=== PATIENT | female | born 1940 | race Caucasian/White ===

== ENCOUNTER → 2016-09-09 | Outpatient (CLI) | payer OTHER ==
[~2016-09-09] MED LIST: SIMV-13 PO
[2016-09-09 09:22] LABS: Basophils # (auto) 0 uL; Basophils % (auto) 0.6 % (0.0-2.0); Eosinophils # (auto) 0.1 uL; Eosinophils % (auto) 1.1 % (0.0-7.0); Hematocrit 42.6 % (36.0-46.0); Hemoglobin 13.9 g/dL (12.2-16.2); Lymphocytes # (auto) 1.2 uL; Lymphocytes % (auto) 22.9 % (10.0-50.0); Mean Corpuscular Hemoglobin 28.9 pg (28.0-32.0); Mean Corpuscular Hgb Conc. 32.5 g/dL (32.0-36.0); Mean Corpuscular Volume 88.7 fL (80.0-100.0); Monocytes # (auto) 0.4 uL; Monocytes % (auto) 7.3 % (0.0-12.0); Neutrophils # (auto) 3.6 uL; Neutrophils % (auto) 68.1 % (37.0-80.0); Platelet Count (auto) 218 10^3/uL (140-450); Red Cell Distribution Width 14.8 % (11.6-16.0); White Blood Cell 5.2 10^3/uL (4.4-10.8)
[2016-09-09 09:32] LABS: Urine Bilirubin Negative (Negative); Urine Blood TRACE /uL (Negative); Urine Color Yellow (Yellow); Urine Glucose Normal (Normal); Urine Ketone Negative (Negative); Urine RBC 1 /hpf (0 - 4); Urine Squamous Epithelial Cell FEW /hpf (<5); Urine Urobilinogen Normal (Negative)
[2016-09-09 09:34] LABS: Urine Nitrite POSITIVE (Negative)
[2016-09-09 10:17] LABS: Potassium 4.3 mmol/L (3.5-5.1)
[2016-09-09 10:24] LABS: Albumin 3.5 g/dL (3.4-5.0); BUN/Creatinine Ratio 26.7; Calcium 8.2 mg/dL (8.5-10.1)
[2016-09-09 10:26] LABS: Bilirubin, Total 0.7 mg/dL (0.2-1.0)
== END | disposition home or self-care (01) ==
LOC: LAB 07:52
PROVIDERS: ATTEND Family Medicine
DX: Z00.00 Encounter for general adult medical examination without abnormal findings (principal); E78.4 Other hyperlipidemia
CPT/HCPCS: 36415; 80053; 80061; 81001; 82306; 82607; 83036; 84443; 85025

== ENCOUNTER → 2017-05-18 | Outpatient (CLI) | payer OTHER ==
[2017-05-18 10:26] LABS: Urine Bacteria NONE SEEN /hpf (None Seen); Urine Blood Negative /uL (Negative); Urine Specific Gravity 1.005 (1.001-1.035); Urine WBC <1 /hpf (0 - 5)
== END | disposition home or self-care (01) ==
LOC: LAB 09:23
PROVIDERS: ATTEND Family Medicine
DX: E55.9 Vitamin D deficiency, unspecified (principal)
CPT/HCPCS: 81001; 82306; 82607

== ENCOUNTER → 2018-06-18 | Outpatient (CLI) | payer OTHER ==
[2018-06-18 08:18] LABS: Basophils # (auto) 0 uL; Basophils % (auto) 0.7 % (0.0-2.0); Eosinophils # (auto) 0.1 uL; Eosinophils % (auto) 1.4 % (0.0-7.0); Hematocrit 45.6 % (36.0-46.0); Hemoglobin 14.8 g/dL (12.2-16.2); Lymphocytes # (auto) 1.3 uL; Lymphocytes % (auto) 21.4 % (10.0-50.0); Mean Corpuscular Hemoglobin 29.7 pg (28.0-32.0); Mean Corpuscular Hgb Conc. 32.5 g/dL (32.0-36.0); Mean Corpuscular Volume 91.3 fL (80.0-100.0); Monocytes # (auto) 0.4 uL; Monocytes % (auto) 6.8 % (0.0-12.0); Neutrophils # (auto) 4.1 uL; Neutrophils % (auto) 69.7 % (37.0-80.0); Platelet Count (auto) 213 10^3/uL (140-450); Red Blood Cells 4.99 10^6/uL (4.0-5.20); Red Cell Distribution Width 14.2 % (11.8-14.3); White Blood Cell 5.9 10^3/uL (4.4-10.8)
[2018-06-18 08:33] LABS: Urine Bacteria FEW /hpf (None Seen); Urine Blood Negative /uL (Negative); Urine Specific Gravity 1.013 (1.001-1.035); Urine WBC 3 /hpf (0 - 5)
[2018-06-18 08:52] LABS: Potassium 3.7 mmol/L (3.5-5.1)
[2018-06-18 09:00] LABS: Albumin 3.6 g/dL (3.4-5.0); BUN/Creatinine Ratio 21.4; Bilirubin, Total 0.8 mg/dL (0.2-1.0); Calcium 8.8 mg/dL (8.5-10.1); Total Protein 7.3 g/dL (6.4-8.2)
== END | disposition home or self-care (01) ==
LOC: LAB 07:19
PROVIDERS: ATTEND Family Medicine
DX: Z00.01 Encounter for general adult medical examination with abnormal findings (principal); E55.9 Vitamin D deficiency, unspecified; E78.2 Mixed hyperlipidemia
CPT/HCPCS: 36415; 80053; 80061; 81001; 82306; 82607; 84443; 85025

== ENCOUNTER → 2019-08-23 | Outpatient (CLI) | payer OTHER ==
[2019-08-23 08:47] LABS: Urine WBC None Seen /hpf (0 - 5)
[2019-08-23 09:07] LABS: Urine Bacteria FEW /hpf (None Seen); Urine Blood Negative /uL (Negative); Urine Mucus FEW (None Seen); Urine Specific Gravity 1.012 (1.001-1.035)
[2019-08-23 09:11] LABS: Basophils # (auto) 0 uL; Basophils % (auto) 0.9 % (0.0-2.0); Eosinophils # (auto) 0.1 uL; Eosinophils % (auto) 1.1 % (0.0-7.0); Hemoglobin 14.4 g/dL (12.2-16.2); Lymphocytes # (auto) 1.3 uL; Lymphocytes % (auto) 24.7 % (10.0-50.0); Mean Corpuscular Hgb Conc. 33.4 g/dL (32.0-36.0); Mean Corpuscular Volume 89.8 fL (80.0-100.0); Monocytes # (auto) 0.4 uL; Monocytes % (auto) 7.7 % (0.0-12.0); Neutrophils # (auto) 3.5 uL; Neutrophils % (auto) 65.6 % (37.0-80.0); Nucleated Red Blood Cells % 0.1 %; Platelet Count (auto) 175 10^3/uL (140-450); Red Blood Cells 4.79 10^6/uL (4.0-5.20); Red Cell Distribution Width 15.3 % (11.8-14.3); White Blood Cell 5.4 10^3/uL (4.4-10.8)
[2019-08-23 09:29] LABS: Albumin 3.6 g/dL (3.4-5.0); Calcium 8.7 mg/dL (8.5-10.1); Potassium 3.9 mmol/L (3.5-5.1)
[2019-08-23 09:33] LABS: BUN/Creatinine Ratio 20.4; Bilirubin, Total 0.7 mg/dL (0.2-1.0); Total Protein 7.3 g/dL (6.4-8.2)
== END | disposition home or self-care (01) ==
LOC: LAB 08:20
PROVIDERS: ATTEND Family Medicine
DX: E78.2 Mixed hyperlipidemia (principal); K21.0 Gastro-esophageal reflux disease with esophagitis; E55.9 Vitamin D deficiency, unspecified; R63.4 Abnormal weight loss; R47.02 Dysphasia
CPT/HCPCS: 36415; 80053; 80061; 81001; 82306; 84443; 85025

== ENCOUNTER → 2019-09-27 | Day surgery (SDC) | payer OTHER ==
[2019-09-26 09:39] LABS: Basophils # (auto) 0 10 ^3/uL (0-0.2); Basophils % (auto) 0.9 % (0.0-2.0); Eosinophils # (auto) 0 10 ^3/uL (0-0.8); Eosinophils % (auto) 0.6 % (0.0-7.0); Hematocrit 42.2 % (36.0-46.0); Hemoglobin 14.4 g/dL (12.2-16.2); Lymphocytes # (auto) 1.2 10 ^3/uL (0.4-5.4); Lymphocytes % (auto) 22.2 % (10.0-50.0); Mean Corpuscular Hemoglobin 30.5 pg (28.0-32.0); Mean Corpuscular Hgb Conc. 34.1 g/dL (32.0-36.0); Mean Corpuscular Volume 89.5 fL (80.0-100.0); Monocytes # (auto) 0.5 10 ^3/uL (0-1.3); Monocytes % (auto) 8.4 % (0.0-12.0); Neutrophils # (auto) 3.6 10 ^3/uL (1.6-8.6); Neutrophils % (auto) 67.9 % (37.0-80.0); Nucleated Red Blood Cells % 0.1 %; Platelet Count (auto) 178 10^3/uL (140-450); Red Blood Cells 4.71 10^6/uL (4.0-5.20); White Blood Cell 5.4 10^3/uL (4.4-10.8)
[2019-09-26 10:03] LABS: INR 0.98 (0.9-1.15); Partial Thromboplastin Time 24.5 sec (23.64-32.05)
[~2019-09-27] VITALS: Ht 162.6 cm; Wt 71.2 kg
[~2019-09-27] MED LIST changes: +FLUMAZENIL 0.1 MG/ML INJ 10ML MDV IV ONE; +LIDOCAINE VISCOUS 2% 15ML UD ONE; +MIDAZOLAM HCL 5 MG/ML-1ML VIAL ONE; +NALOXONE HCL 0.4 MG/ML VIAL ONE; +OMEP20TA PO; +SODIUM CHLORIDE LOCK 10 ML ONE; +diphenhdrAMINE HCL 50 MG/1 ML VL ONE
[2019-09-27] MEDS: fentaNYL CITRATE 100 MCG/2 ML VL ONE ×2 (10:07→10:12)
[2019-09-27 10:53] VITALS: BP 141/67
== END | disposition home or self-care (01) ==
LOC: GI 08:17
PROVIDERS: ATTEND Internal Medicine Gastroenterology
DX: K29.50 Unspecified chronic gastritis without bleeding (principal); K21.0 Gastro-esophageal reflux disease with esophagitis; K44.9 Diaphragmatic hernia without obstruction or gangrene; E78.5 Hyperlipidemia, unspecified; E66.9 Obesity, unspecified; E55.9 Vitamin D deficiency, unspecified; Z98.890 Other specified postprocedural states; Z68.26 Body mass index [BMI] 26.0-26.9, adult; Z79.899 Other long term (current) drug therapy
CPT/HCPCS: 36415; 43239; 43450; 85025; 85610; 85730; 88305; 88342; J1200; J2250; J3010; J7030

== ENCOUNTER → 2020-08-18 | Outpatient (CLI) | payer OTHER ==
[~2020-08-18] MED LIST changes: -FLUMAZENIL 0.1 MG/ML INJ 10ML MDV IV ONE; -LIDOCAINE VISCOUS 2% 15ML UD ONE; -MIDAZOLAM HCL 5 MG/ML-1ML VIAL ONE; -NALOXONE HCL 0.4 MG/ML VIAL ONE; -SODIUM CHLORIDE LOCK 10 ML ONE; -diphenhdrAMINE HCL 50 MG/1 ML VL ONE
[2020-08-18 08:16] LABS: Basophils # (auto) 0 10 ^3/uL (0-0.2); Basophils % (auto) 0.8 % (0.0-2.0); Eosinophils # (auto) 0 10 ^3/uL (0-0.8); Eosinophils % (auto) 0.8 % (0.0-7.0); Hematocrit 42.3 % (36.0-46.0); Hemoglobin 14.3 g/dL (12.2-16.2); Lymphocytes # (auto) 1.2 10 ^3/uL (0.4-5.4); Lymphocytes % (auto) 23.1 % (10.0-50.0); Mean Corpuscular Hemoglobin 31.2 pg (28.0-32.0); Mean Corpuscular Hgb Conc. 33.8 g/dL (32.0-36.0); Mean Corpuscular Volume 92.4 fL (80.0-100.0); Monocytes # (auto) 0.4 10 ^3/uL (0-1.3); Monocytes % (auto) 7.1 % (0.0-12.0); Neutrophils # (auto) 3.5 10 ^3/uL (1.6-8.6); Neutrophils % (auto) 68.2 % (37.0-80.0); Platelet Count (auto) 167 10^3/uL (140-450); Red Blood Cells 4.58 10^6/uL (4.0-5.20); Red Cell Distribution Width 14.4 % (11.8-14.3); White Blood Cell 5.1 10^3/uL (4.4-10.8)
[2020-08-18 08:43] LABS: Urine Bacteria FEW /hpf (None Seen); Urine Blood 1+ /uL (Negative); Urine Mucus FEW (None Seen); Urine Specific Gravity 1.017 (1.001-1.035); Urine WBC 4 /hpf (0 - 5)
[2020-08-18 08:44] LABS: Albumin 3.6 g/dL (3.4-5.0); Calcium 8.4 mg/dL (8.5-10.1); Potassium 3.9 mmol/L (3.5-5.1)
[2020-08-18 08:48] LABS: BUN/Creatinine Ratio 21.1; Bilirubin, Total 0.8 mg/dL (0.2-1.0); Total Protein 7.2 g/dL (6.4-8.2)
== END | disposition home or self-care (01) ==
LOC: LAB 07:39
PROVIDERS: ATTEND Family Medicine
DX: S22.080A Wedge compression fracture of T11-T12 vertebra, initial encounter for closed fracture (principal); E78.2 Mixed hyperlipidemia; K21.9 Gastro-esophageal reflux disease without esophagitis; E55.9 Vitamin D deficiency, unspecified; X58.XXXA Exposure to other specified factors, initial encounter; Y93.89 Activity, other specified; Y92.89 Other specified places as the place of occurrence of the external cause; Y99.8 Other external cause status
CPT/HCPCS: 36415; 80053; 80061; 81001; 82306; 82607; 84443; 85025

== ENCOUNTER → 2021-08-02 | Outpatient (CLI) | payer OTHER ==
[2021-08-02 07:53] LABS: Basophils # (auto) 0 10 ^3/uL (0-0.2); Basophils % (auto) 0.8 % (0.0-2.0); Eosinophils # (auto) 0.1 10 ^3/uL (0-0.8); Eosinophils % (auto) 1.3 % (0.0-7.0); Hematocrit 41.8 % (36.0-46.0); Hemoglobin 13.9 g/dL (12.2-16.2); Lymphocytes # (auto) 1.4 10 ^3/uL (0.4-5.4); Lymphocytes % (auto) 24.6 % (10.0-50.0); Mean Corpuscular Hemoglobin 30.4 pg (28.0-32.0); Mean Corpuscular Hgb Conc. 33.2 g/dL (32.0-36.0); Mean Corpuscular Volume 91.4 fL (80.0-100.0); Monocytes # (auto) 0.5 10 ^3/uL (0-1.3); Monocytes % (auto) 8.3 % (0.0-12.0); Neutrophils # (auto) 3.6 10 ^3/uL (1.6-8.6); Nucleated Red Blood Cells % 0.2 %; Red Blood Cells 4.57 10^6/uL (4.0-5.20); Red Cell Distribution Width 14.3 % (11.8-14.3); White Blood Cell 5.6 10^3/uL (4.4-10.8)
[2021-08-02 08:07] LABS: Albumin 3.5 g/dL (3.4-5.0); Calcium 8.4 mg/dL (8.5-10.1); Potassium 3.7 mmol/L (3.5-5.1)
[2021-08-02 08:13] LABS: Bilirubin, Total 0.7 mg/dL (0.2-1.0); Total Protein 6.8 g/dL (6.4-8.2)
== END | disposition home or self-care (01) ==
LOC: LAB 07:05
PROVIDERS: ATTEND Student in an Organized Health Care Education/Training Program
DX: K21.9 Gastro-esophageal reflux disease without esophagitis (principal); R03.0 Elevated blood-pressure reading, without diagnosis of hypertension; E78.2 Mixed hyperlipidemia
CPT/HCPCS: 36415; 80053; 80061; 83036; 85025

== ENCOUNTER → 2022-08-10 | Outpatient (CLI) | payer OTHER ==
[2022-08-10 08:43] LABS: Basophils # (auto) 0 10 ^3/uL (0-0.2); Basophils % (auto) 0.8 % (0.0-2.0); Eosinophils # (auto) 0.1 10 ^3/uL (0-0.8); Eosinophils % (auto) 0.9 % (0.0-7.0); Hematocrit 43.4 % (36.0-46.0); Hemoglobin 14.5 g/dL (12.2-16.2); Lymphocytes # (auto) 1.7 10 ^3/uL (0.4-5.4); Lymphocytes % (auto) 28.1 % (10.0-50.0); Mean Corpuscular Hemoglobin 31.1 pg (28.0-32.0); Mean Corpuscular Hgb Conc. 33.5 g/dL (32.0-36.0); Mean Corpuscular Volume 92.8 fL (80.0-100.0); Monocytes # (auto) 0.5 10 ^3/uL (0-1.3); Monocytes % (auto) 7.9 % (0.0-12.0); Neutrophils # (auto) 3.7 10 ^3/uL (1.6-8.6); Neutrophils % (auto) 62.3 % (37.0-80.0); Nucleated Red Blood Cells % 0.2 %; Red Blood Cells 4.67 10^6/uL (4.0-5.20); Red Cell Distribution Width 13.8 % (11.8-14.3); White Blood Cell 5.9 10^3/uL (4.4-10.8)
[2022-08-10 09:02] LABS: Albumin 3.8 g/dL (3.4-5.0); Calcium 8.6 mg/dL (8.5-10.1); Potassium 4.1 mmol/L (3.5-5.1)
[2022-08-10 09:08] LABS: BUN/Creatinine Ratio 25.8; Bilirubin, Total 0.9 mg/dL (0.2-1.0); Total Protein 7.1 g/dL (6.4-8.2)
== END | disposition home or self-care (01) ==
LOC: LAB 08:28
PROVIDERS: ATTEND Student in an Organized Health Care Education/Training Program
DX: I10 Essential (primary) hypertension (principal); E78.2 Mixed hyperlipidemia
CPT/HCPCS: 36415; 80053; 85025

== ENCOUNTER 2023-05-09 12:16 | Inpatient (IN) | payer OTHER ==
[~2023-05-09] VITALS: Ht 162.6 cm; Wt 67.3 kg
[~2023-05-09 12:16] MED LIST changes: -SIMV-13 PO; +SIMV40TA18 PO
[2023-05-09] MEDS ORDERED: ASPirin 81 mg TAB PO ONE (12:30)
[2023-05-09] MEDS ORDERED: dilTIAZem 25 MG/5 ML VIAL IV ONE (12:30)
[2023-05-09] MEDS ORDERED: dilTIAZem 125mg/125ml BAG KIT 125 ML IV ONE (12:30)
[2023-05-09 12:36] LABS: Basophils # (auto) 0 10 ^3/uL (0-0.2); Basophils % (auto) 0.3 % (0.0-2.0); Eosinophils # (auto) 0 10 ^3/uL (0-0.8); Eosinophils % (auto) 0.2 % (0.0-7.0); Hematocrit 43.1 % (36.0-46.0); Hemoglobin 14.4 g/dL (12.2-16.2); Lymphocytes # (auto) 1.6 10 ^3/uL (0.4-5.4); Lymphocytes % (auto) 15.4 % (10.0-50.0); Mean Corpuscular Hemoglobin 31.1 pg (28.0-32.0); Mean Corpuscular Hgb Conc. 33.4 g/dL (32.0-36.0); Mean Corpuscular Volume 93.1 fL (80.0-100.0); Monocytes # (auto) 0.8 10 ^3/uL (0-1.3); Monocytes % (auto) 7.6 % (0.0-12.0); Neutrophils # (auto) 7.9 10 ^3/uL (1.6-8.6); Neutrophils % (auto) 76.5 % (37.0-80.0); Nucleated Red Blood Cells % 0.1 %; Red Blood Cells 4.63 10^6/uL (4.0-5.20); Red Cell Distribution Width 14.6 % (11.8-14.3); White Blood Cell 10.4 10^3/uL (4.4-10.8)
[2023-05-09 12:51] LABS: INR 1.09 (0.9-1.15); Partial Thromboplastin Time 24.5 SEC (24.5-34.5); Prothrombin Time 11.4 sec (9.3-11.8)
[2023-05-09 12:53] LABS: Alanine Aminotransferase 43 U/L (7-40); Albumin 4.2 g/dL (3.2-4.8); Alkaline Phosphatase 80 U/L (46-116); Anion Gap 6 (5-15); Aspartate Aminotransferase 39 U/L (13-40); BUN/Creatinine Ratio 23.5 (10.0-20.0); Blood Urea Nitrogen 20 mg/dL (9-23); Carbon Dioxide 30 mmol/L (20-30); Chloride 101 mmol/L (98-107); Glucose 123 mg/dL (74-106); Magnesium 2.2 mg/dL (1.6-2.6); Potassium 4.2 mmol/L (3.5-5.1); Sodium 137 mmol/L (136-145)
[2023-05-09 12:54] LABS: Bilirubin, Total 1.1 mg/dL (0.2-1.0); Total Protein 6.2 g/dL (5.7-8.2)
[2023-05-09] MEDS ORDERED: FUROSEMIDE 40 MG/4 ML VIAL IV ONE (15:15)
[2023-05-09] MEDS ORDERED: METOPROLOL TARTRATE 1MG/1ML-5ML VIAL IV ONE (15:30)
[2023-05-09] MEDS ORDERED: dilTIAZem 125mg/125ml BAG KIT 125 ML IV SCH (15:30)
[2023-05-09] MEDS ORDERED: NITROGLYCERIN 0.4 MG SL TAB SL PRN (15:30)
[2023-05-09] MEDS ORDERED: MORPHINE SULFATE INJ 2 MG/ml SYRG IV PRN (15:30)
[2023-05-09 16:19] VITALS: RESP 17; O2SAT 90
[2023-05-09 19:45] VITALS: PULSE 134; RESP 25; O2SAT 94
[2023-05-09] MEDS ORDERED: AMIODARONE 450mg/250ml AE 250 ML IV SCH (20:00)
[2023-05-09] MEDS ORDERED: ENOXAPARIN SOD 100 MG/1 ML SYRINGE SC SCH (22:00)
[2023-05-09] MEDS: APIXABAN 2.5 MG TAB PO SCH (22:25)
[2023-05-09] MEDS: ATORVASTATIN 20 MG TAB PO SCH (22:25)
[2023-05-09] MEDS: METOPROLOL TARTRATE 25 MG TAB PO SCH (22:25)
[2023-05-10] VITALS (8 sets, daily range): BP systolic 107–120; BP diastolic 61–77; PULSE 110–127; RESP 16–22; TEMP 97.6–98.7; O2SAT 95–97
[2023-05-10] MEDS: AMIODARONE 450mg/250ml AE 250 ML IV SCH ×2 (04:34→18:00)
[2023-05-10 05:21] LABS: Urine Bacteria FEW /hpf (None Seen); Urine Blood Negative /uL (Negative); Urine Clarity HAZY (Clear); Urine Color Yellow (Yellow); Urine Mucus FEW (None Seen); Urine Protein, UAD TRACE (Negative); Urine Specific Gravity 1.014 (1.001-1.035); Urine WBC 11 /hpf (0 - 5); Urine pH 5.5 (5.0-8.0)
[2023-05-10] MEDS: PANTOPRAZOLE 40 MG TAB PO SCH (09:29)
[2023-05-10] MEDS: APIXABAN 2.5 MG TAB PO SCH (09:29)
[2023-05-10] MEDS: METOPROLOL TARTRATE 25 MG TAB PO SCH ×2 (09:29→21:17)
[2023-05-10] MEDS: FUROSEMIDE 20 MG TAB PO SCH (09:31)
[2023-05-10] MEDS: cefTRIAXone 1GM/50ML D5W 50 ML IV SCH (09:57)
[2023-05-10] MEDS ORDERED: FUROSEMIDE 20 MG/2 ML VIAL IV SCH (10:00)
[2023-05-10] MEDS: ATORVASTATIN 20 MG TAB PO SCH (21:18)
[2023-05-10] MEDS: APIXABAN 5 MG TAB PO SCH (21:18)
[2023-05-11] VITALS (7 sets, daily range): BP systolic 109–128; BP diastolic 69–76; PULSE 102–132; RESP 17–20; TEMP 97–97.7; O2SAT 94–98
[2023-05-11 05:31] LABS: Basophils # (auto) 0.1 10 ^3/uL (0-0.2); Basophils % (auto) 0.8 % (0.0-2.0); Eosinophils # (auto) 0 10 ^3/uL (0-0.8); Eosinophils % (auto) 0.1 % (0.0-7.0); Hematocrit 39.6 % (36.0-46.0); Lymphocytes # (auto) 1.4 10 ^3/uL (0.4-5.4); Mean Corpuscular Hemoglobin 30.3 pg (28.0-32.0); Mean Corpuscular Hgb Conc. 32.8 g/dL (32.0-36.0); Mean Corpuscular Volume 92.3 fL (80.0-100.0); Monocytes # (auto) 0.7 10 ^3/uL (0-1.3); Monocytes % (auto) 8.6 % (0.0-12.0); Neutrophils # (auto) 6.1 10 ^3/uL (1.6-8.6); Neutrophils % (auto) 73.5 % (37.0-80.0); Nucleated Red Blood Cells % 0.1 %; Red Blood Cells 4.29 10^6/uL (4.0-5.20); Red Cell Distribution Width 14.3 % (11.8-14.3); White Blood Cell 8.3 10^3/uL (4.4-10.8)
[2023-05-11 05:48] LABS: Chloride 98 mmol/L (98-107); Sodium 135 mmol/L (136-145)
[2023-05-11 05:49] LABS: Anion Gap 6 (5-15); Carbon Dioxide 31 mmol/L (20-30)
[2023-05-11 05:50] LABS: Calcium 8.8 mg/dL (8.7-10.4)
[2023-05-11 05:54] LABS: Glucose 127 mg/dL (74-106)
[2023-05-11 05:55] LABS: Blood Urea Nitrogen 12 mg/dL (9-23)
[2023-05-11] MEDS: PANTOPRAZOLE 40 MG TAB PO SCH (09:00)
[2023-05-11] MEDS: cefTRIAXone 1GM/50ML D5W 50 ML IV SCH (09:00)
[2023-05-11] MEDS: APIXABAN 5 MG TAB PO SCH (09:00)
[2023-05-11] MEDS: METOPROLOL TARTRATE 25 MG TAB PO SCH ×2 (09:01→23:01)
[2023-05-11] MEDS: FUROSEMIDE 20 MG TAB PO SCH (09:02)
[2023-05-11] MEDS: AMIODARONE 450mg/250ml AE 250 ML IV SCH (09:24)
[2023-05-11] MEDS ORDERED: DIGOXIN (250MCG/ML) 2 ML AMPULE IV ONE (11:30)
[2023-05-11] MEDS ORDERED: FUROSEMIDE INJECTION 100 MG in D5W 5% 100 ML IV SCH (11:30)
[2023-05-11] MEDS: SPIRONOLACTONE 25 MG TAB PO SCH (13:40)
[2023-05-11] MEDS ORDERED: ENOXAPARIN SOD 100 MG/1 ML SYRINGE SC SCH (22:00)
[2023-05-11] MEDS: ATORVASTATIN 20 MG TAB PO SCH (23:01)
[2023-05-12] VITALS (13 sets, daily range): BP systolic 105–122; BP diastolic 52–82; PULSE 110–136; RESP 15–20; TEMP 97.3–97.8; O2SAT 91–99
[2023-05-12] MEDS: AMIODARONE 450mg/250ml AE 250 ML IV SCH ×2 (02:36→14:06)
[2023-05-12 06:10] LABS: Basophils # (auto) 0 10 ^3/uL (0-0.2); Basophils % (auto) 0.3 % (0.0-2.0); Chloride 95 mmol/L (98-107); Eosinophils # (auto) 0 10 ^3/uL (0-0.8); Eosinophils % (auto) 0.1 % (0.0-7.0); Hematocrit 41.3 % (36.0-46.0); Hemoglobin 13.7 g/dL (12.2-16.2); Lymphocytes # (auto) 1.3 10 ^3/uL (0.4-5.4); Mean Corpuscular Hemoglobin 30.4 pg (28.0-32.0); Mean Corpuscular Hgb Conc. 33.2 g/dL (32.0-36.0); Mean Corpuscular Volume 91.4 fL (80.0-100.0); Monocytes # (auto) 1.1 10 ^3/uL (0-1.3); Neutrophils # (auto) 11.7 10 ^3/uL (1.6-8.6); Neutrophils % (auto) 82.6 % (37.0-80.0); Red Blood Cells 4.52 10^6/uL (4.0-5.20); Red Cell Distribution Width 14.1 % (11.8-14.3); Sodium 136 mmol/L (136-145); White Blood Cell 14.2 10^3/uL (4.4-10.8)
[2023-05-12 06:11] LABS: Anion Gap 7 (5-15); Calcium 8.4 mg/dL (8.7-10.4); Carbon Dioxide 34 mmol/L (20-30)
[2023-05-12] MEDS: EMPAGLIFLOZIN 10 MG TAB PO SCH (06:13)
[2023-05-12 06:16] LABS: BUN/Creatinine Ratio 10.6 (10.0-20.0); Blood Urea Nitrogen 7 mg/dL (9-23); Glucose 121 mg/dL (74-106); Potassium 2.8 mmol/L (3.5-5.1)
[2023-05-12] MEDS ORDERED: POTASSIUM EFFERVESENT TAB 25 MEQ PO ONE ×2 (07:15→08:45)
[2023-05-12] MEDS ORDERED: LIDOCAINE 2%HCL (LOCAL ANESTH.) INJ 20ML MDV ONE (07:46)
[2023-05-12] MEDS ORDERED: IODIXANOL 320MG/ML 100ML BTL IV ONE (07:46)
[2023-05-12] MEDS ORDERED: HEPARIN SODIUM (PORCINE) 5000 UNITS/ML 1ML VIAL ONE (08:03)
[2023-05-12] MEDS ORDERED: ANGIOMAX 250 MG VIAL IV ONE (08:03)
[2023-05-12] MEDS ORDERED: SODIUM CHL 0.9% 0 ML ONE (08:04)
[2023-05-12] MEDS ORDERED: MIDAZOLAM HCL 2MG/2ML 2ml VIAL (1mg/ml) ONE (08:04)
[2023-05-12] MEDS ORDERED: fentaNYL CITRATE 100 MCG/2 ML VL ONE (08:04)
[2023-05-12] MEDS ORDERED: VERAPAMIL 2.5MG/ML INJ 2ML VIAL IV ONE (08:04)
[2023-05-12] MEDS ORDERED: POTASSIUM CHLORIDE 40 MEQ, LIDOCAINE 1% (LOCAL ANESTH.) 4 ML in SODIUM CHL 0.9% 250 ML IV ONE (08:45)
[2023-05-12] MEDS: cefTRIAXone 1GM/50ML D5W 50 ML IV SCH (09:00)
[2023-05-12 09:23] LABS: Triglycerides 77 mg/dL (< 150)
[2023-05-12 09:24] LABS: LDL Cholesterol 58 mg/dL (< 100)
[2023-05-12 09:25] LABS: Cholesterol 131 mg/dL (< 200)
[2023-05-12] MEDS ORDERED: SPIRONOLACTONE 25 MG TAB PO SCH (10:00)
[2023-05-12] MEDS ORDERED: dilTIAZem 120MG ER CAP PO SCH (10:00)
[2023-05-12] MEDS ORDERED: FUROSEMIDE 40 MG/4 ML VIAL IV ONE (11:15)
[2023-05-12] MEDS: LISINOPRIL 10 MG TAB PO SCH (11:38)
[2023-05-12] MEDS: PANTOPRAZOLE 40 MG TAB PO SCH (11:40)
[2023-05-12] MEDS: SPIRONOLACTONE 25 MG TAB PO SCH (11:41)
[2023-05-12] MEDS: METOPROLOL TARTRATE 25 MG TAB PO SCH ×2 (11:42→21:47)
[2023-05-12] MEDS: DIGOXIN 0.125 MG TAB PO SCH (11:43)
[2023-05-12 15:54] LABS: HDL Cholesterol 51 mg/dL (40-59)
[2023-05-12] MEDS: FUROSEMIDE 40 MG/4 ML VIAL IV SCH (18:00)
[2023-05-12] MEDS: ATORVASTATIN 20 MG TAB PO SCH (21:47)
[2023-05-12] MEDS: APIXABAN 5 MG TAB PO SCH (21:47)
[2023-05-13] VITALS (9 sets, daily range): BP systolic 106–116; BP diastolic 60–80; PULSE 98–131; RESP 14–18; TEMP 97.7–98.5; O2SAT 95–98
[2023-05-13] MEDS: AMIODARONE 450mg/250ml AE 250 ML IV SCH ×2 (04:26→20:21)
[2023-05-13 05:47] LABS: Anion Gap 4 (5-15); Calcium 8.3 mg/dL (8.7-10.4); Carbon Dioxide 36 mmol/L (20-30); Chloride 93 mmol/L (98-107); Sodium 133 mmol/L (136-145)
[2023-05-13 05:51] LABS: Basophils # (auto) 0 10 ^3/uL (0-0.2); Basophils % (auto) 0.5 % (0.0-2.0); Eosinophils # (auto) 0 10 ^3/uL (0-0.8); Eosinophils % (auto) 0.4 % (0.0-7.0); Hematocrit 40.8 % (36.0-46.0); Hemoglobin 13.4 g/dL (12.2-16.2); Lymphocytes # (auto) 1.2 10 ^3/uL (0.4-5.4); Lymphocytes % (auto) 13.6 % (10.0-50.0); Mean Corpuscular Hemoglobin 30.4 pg (28.0-32.0); Mean Corpuscular Volume 92.2 fL (80.0-100.0); Monocytes # (auto) 0.8 10 ^3/uL (0-1.3); Monocytes % (auto) 9.3 % (0.0-12.0); Neutrophils # (auto) 6.8 10 ^3/uL (1.6-8.6); Neutrophils % (auto) 76.2 % (37.0-80.0); Red Blood Cells 4.42 10^6/uL (4.0-5.20); Red Cell Distribution Width 14.1 % (11.8-14.3); White Blood Cell 8.9 10^3/uL (4.4-10.8)
[2023-05-13 05:52] LABS: Glucose 108 mg/dL (74-106)
[2023-05-13 05:53] LABS: BUN/Creatinine Ratio 13.6 (10.0-20.0); Blood Urea Nitrogen 9 mg/dL (9-23)
[2023-05-13 05:54] LABS: Magnesium 1.9 mg/dL (1.6-2.6)
[2023-05-13] MEDS: FUROSEMIDE 40 MG/4 ML VIAL IV SCH ×2 (06:47→17:12)
[2023-05-13] MEDS: EMPAGLIFLOZIN 10 MG TAB PO SCH (06:48)
[2023-05-13 06:54] LABS: Potassium 2.9 mmol/L (3.5-5.1)
[2023-05-13] MEDS ORDERED: POTASSIUM CHL 20 Meq TABLET PO ONE ×2 (07:15→15:45)
[2023-05-13] MEDS: cefTRIAXone 1GM/50ML D5W 50 ML IV SCH (08:57)
[2023-05-13] MEDS: LISINOPRIL 10 MG TAB PO SCH (09:00)
[2023-05-13] MEDS: PANTOPRAZOLE 40 MG TAB PO SCH (09:01)
[2023-05-13] MEDS: DIGOXIN 0.125 MG TAB PO SCH (09:02)
[2023-05-13] MEDS: SPIRONOLACTONE 25 MG TAB PO SCH ×2 (09:03→17:11)
[2023-05-13] MEDS: METOPROLOL TARTRATE 25 MG TAB PO SCH ×2 (09:03→21:48)
[2023-05-13] MEDS: APIXABAN 5 MG TAB PO SCH ×2 (10:14→21:47)
[2023-05-13] MEDS: ATORVASTATIN 20 MG TAB PO SCH (21:46)
[2023-05-14] VITALS (8 sets, daily range): BP systolic 103–119; BP diastolic 54–71; PULSE 87–133; RESP 16–20; TEMP 97.7–98.7; O2SAT 95–99
[2023-05-14] MEDS: SPIRONOLACTONE 25 MG TAB PO SCH ×2 (05:52→18:01)
[2023-05-14] MEDS: FUROSEMIDE 40 MG/4 ML VIAL IV SCH ×2 (05:52→18:01)
[2023-05-14 06:23] LABS: Alanine Aminotransferase 28 U/L (7-40); Albumin 3.6 g/dL (3.2-4.8); Alkaline Phosphatase 58 U/L (46-116); Aspartate Aminotransferase 37 U/L (13-40); Calcium 8.6 mg/dL (8.7-10.4); Carbon Dioxide 35 mmol/L (20-30); Chloride 92 mmol/L (98-107)
[2023-05-14 06:24] LABS: Anion Gap 6 (5-15); BUN/Creatinine Ratio 15.6 (10.0-20.0); Bilirubin, Total 1.5 mg/dL (0.2-1.0); Blood Urea Nitrogen 10 mg/dL (9-23); Glucose 106 mg/dL (74-106); Potassium 3.5 mmol/L (3.5-5.1); Sodium 133 mmol/L (136-145); Total Protein 5.6 g/dL (5.7-8.2)
[2023-05-14] MEDS: EMPAGLIFLOZIN 10 MG TAB PO SCH (06:33)
[2023-05-14] MEDS: POTASSIUM CHL 20 Meq TABLET PO SCH (08:55)
[2023-05-14] MEDS: PANTOPRAZOLE 40 MG TAB PO SCH (08:56)
[2023-05-14] MEDS: DIGOXIN 0.125 MG TAB PO SCH (08:56)
[2023-05-14] MEDS: LISINOPRIL 10 MG TAB PO SCH (08:56)
[2023-05-14] MEDS: METOPROLOL TARTRATE 25 MG TAB PO SCH ×2 (08:56→21:15)
[2023-05-14] MEDS: cefTRIAXone 1GM/50ML D5W 50 ML IV SCH (08:57)
[2023-05-14] MEDS: APIXABAN 5 MG TAB PO SCH ×2 (10:02→21:14)
[2023-05-14] MEDS ORDERED: DIGOXIN 0.125 MG TAB PO SCH (11:00)
[2023-05-14] MEDS ORDERED: DIGOXIN 0.125 MG TAB PO ONE (11:15)
[2023-05-14] MEDS: AMIODARONE 450mg/250ml AE 250 ML IV SCH (12:15)
[2023-05-14] MEDS: ATORVASTATIN 20 MG TAB PO SCH (21:14)
[2023-05-15] VITALS (7 sets, daily range): BP systolic 103–117; BP diastolic 54–72; PULSE 104–141; RESP 16–18; TEMP 97.7–98.6; O2SAT 92–97
[2023-05-15] MEDS: AMIODARONE 450mg/250ml AE 250 ML IV SCH ×2 (02:07→18:08)
[2023-05-15] MEDS: SPIRONOLACTONE 25 MG TAB PO SCH ×2 (06:39→17:48)
[2023-05-15] MEDS: EMPAGLIFLOZIN 10 MG TAB PO SCH (06:39)
[2023-05-15] MEDS: FUROSEMIDE 40 MG/4 ML VIAL IV SCH ×2 (06:40→17:48)
[2023-05-15] MEDS ORDERED: POTASSIUM CHL 20 Meq TABLET PO ONE (09:00)
[2023-05-15] MEDS: cefTRIAXone 1GM/50ML D5W 50 ML IV SCH (09:22)
[2023-05-15] MEDS: LISINOPRIL 5 MG TAB PO SCH (09:24)
[2023-05-15] MEDS: PANTOPRAZOLE 40 MG TAB PO SCH (09:25)
[2023-05-15] MEDS: APIXABAN 5 MG TAB PO SCH ×2 (09:25→22:10)
[2023-05-15] MEDS: METOPROLOL TARTRATE 50 MG TAB PO SCH ×2 (09:25→22:11)
[2023-05-15] MEDS: DIGOXIN 0.125 MG TAB PO SCH (09:25)
[2023-05-15] MEDS: POTASSIUM CHL 20 Meq TABLET PO SCH (09:26)
[2023-05-15] MEDS: ATORVASTATIN 20 MG TAB PO SCH (22:10)
[2023-05-16] VITALS (7 sets, daily range): BP systolic 95–134; BP diastolic 61–75; PULSE 61–131; RESP 16–18; TEMP 97.2–98.1; O2SAT 91–96
[2023-05-16] MEDS: EMPAGLIFLOZIN 10 MG TAB PO SCH (06:08)
[2023-05-16] MEDS: SPIRONOLACTONE 25 MG TAB PO SCH (06:08)
[2023-05-16] MEDS: FUROSEMIDE 40 MG/4 ML VIAL IV SCH (06:09)
[2023-05-16 07:50] LABS: Chloride 92 mmol/L (98-107); Potassium 4.4 mmol/L (3.5-5.1); Sodium 131 mmol/L (136-145)
[2023-05-16 07:51] LABS: Anion Gap 7 (5-15); Calcium 8.5 mg/dL (8.5-10.1); Carbon Dioxide 32 mmol/L (20-30)
[2023-05-16 07:55] LABS: Basophils # (auto) 0.1 10 ^3/uL (0-0.2); Basophils % (auto) 0.5 % (0.0-2.0); Eosinophils # (auto) 0.2 10 ^3/uL (0-0.8); Eosinophils % (auto) 1.7 % (0.0-7.0); Hematocrit 43.9 % (36.0-46.0); Hemoglobin 14.3 g/dL (12.2-16.2); Lymphocytes # (auto) 1.4 10 ^3/uL (0.4-5.4); Lymphocytes % (auto) 12.1 % (10.0-50.0); Mean Corpuscular Hemoglobin 29.9 pg (28.0-32.0); Mean Corpuscular Hgb Conc. 32.5 g/dL (32.0-36.0); Mean Corpuscular Volume 91.9 fL (80.0-100.0); Monocytes # (auto) 1.3 10 ^3/uL (0-1.3); Monocytes % (auto) 10.7 % (0.0-12.0); Nucleated Red Blood Cells % 0.2 %; Red Blood Cells 4.78 10^6/uL (4.0-5.20); Red Cell Distribution Width 14.3 % (11.8-14.3)
[2023-05-16 07:56] LABS: Glucose 103 mg/dL (74-106)
[2023-05-16 07:57] LABS: BUN/Creatinine Ratio 23.4 (10.0-20.0); Blood Urea Nitrogen 15 mg/dL (9-23)
[2023-05-16] MEDS: cefTRIAXone 1GM/50ML D5W 50 ML IV SCH (09:49)
[2023-05-16] MEDS: PANTOPRAZOLE 40 MG TAB PO SCH (09:50)
[2023-05-16] MEDS: POTASSIUM CHL 20 Meq TABLET PO SCH (09:51)
[2023-05-16] MEDS: APIXABAN 5 MG TAB PO SCH ×2 (09:51→22:34)
[2023-05-16] MEDS: DIGOXIN 0.125 MG TAB PO SCH (09:52)
[2023-05-16] MEDS: LISINOPRIL 5 MG TAB PO SCH (09:53)
[2023-05-16] MEDS: METOPROLOL TARTRATE 50 MG TAB PO SCH (09:53)
[2023-05-16] MEDS: AMIODARONE 450mg/250ml AE 250 ML IV SCH (09:54)
[2023-05-16] MEDS ORDERED: METOPROLOL TARTRATE 50 MG TAB PO SCH (17:30)
[2023-05-16] MEDS: ATORVASTATIN 20 MG TAB PO SCH (22:33)
[2023-05-16] MEDS: AMIODARONE HCL 200 MG TAB PO SCH (22:33)
[2023-05-17 05:00] VITALS: BP 123/68; PULSE 120; RESP 16; TEMP 97.5; O2SAT 98
[2023-05-17] MEDS: EMPAGLIFLOZIN 10 MG TAB PO SCH (06:28)
[2023-05-17] MEDS ORDERED: METOPROLOL TARTRATE 50 MG TAB PO SCH ×2 (08:00→22:00)
[2023-05-17 09:00] VITALS: BP 116/62; PULSE 109; RESP 17; TEMP 97.9; O2SAT 95
[2023-05-17] MEDS ORDERED: LISINOPRIL 5 MG TAB PO SCH (10:00)
[2023-05-17] MEDS ORDERED: FUROSEMIDE 40 MG/4 ML VIAL IV SCH (10:00)
[2023-05-17] MEDS ORDERED: AMIODARONE HCL 200 MG TAB PO SCH (10:00)
[2023-05-17] MEDS: APIXABAN 5 MG TAB PO SCH (10:36)
[2023-05-17] MEDS: DIGOXIN 0.125 MG TAB PO SCH (10:36)
[2023-05-17] MEDS: AMIODARONE HCL 200 MG TAB PO SCH (10:36)
[2023-05-17] MEDS: PANTOPRAZOLE 40 MG TAB PO SCH (10:36)
[2023-05-17] MEDS ORDERED: HYALURONIDASE 150 UNIT/1 ML SUBCUT ONE ×2 (11:00→12:30)
[2023-05-17 13:00] VITALS: BP 90/49; PULSE 79; RESP 15; TEMP 97.2; O2SAT 92
[2023-05-17] MEDS ORDERED: FURO1TAB33 PO (20:45)
[2023-05-17] MEDS ORDERED: APIX5TAB PO (20:45)
[2023-05-17] MEDS ORDERED: METO-159 PO (20:45)
[2023-05-17] MEDS ORDERED: AMIO200T13 PO (20:45)
[2023-05-17] MEDS ORDERED: LISI2.5T47 PO (20:45)
[2023-05-18] MEDS ORDERED: POTA8TAB38 PO (07:23)
[2023-05-18] MEDS ORDERED: DIGO125T11 PO (07:23)
== END 2023-05-17 16:05 | disposition home or self-care (01) | DRG 286 ==
LOC: ER 12:16 → TELE 15:38 → TELE-EAST 23:26
PROVIDERS: ADMIT Nurse Practitioner Acute Care; ATTEND Nurse Practitioner Acute Care
PROC: 4A023N8 Measurement of Cardiac Sampling and Pressure, Bilateral, Percutaneous Approach (ICD-10-PCS; principal; 2023-05-12)
PROC: B211YZZ Fluoroscopy of Multiple Coronary Arteries using Other Contrast (ICD-10-PCS; 2023-05-12)
DX: I48.20 Chronic atrial fibrillation, unspecified (principal); I50.41 Acute combined systolic (congestive) and diastolic (congestive) heart failure; J96.01 Acute respiratory failure with hypoxia; N39.0 Urinary tract infection, site not specified; I42.8 Other cardiomyopathies; E78.5 Hyperlipidemia, unspecified; I11.0 Hypertensive heart disease with heart failure; I50.82 Biventricular heart failure; I27.21 Secondary pulmonary arterial hypertension; I08.1 Rheumatic disorders of both mitral and tricuspid valves; Z79.01 Long term (current) use of anticoagulants
CPT/HCPCS: 36415; 71045; 76604; 80048; 80053; 80061; 80162; 81001; 83036; 83735; 83880; 84132; 84443; 84484; 85025; 85610; 85730; 86850; 86900; 86901; 87086; 93005; 93306; 93460; 96365; 96367; 96375; 96376; 97163; 99152; 99291; G0378; J0696; J2001; J2250; J3470; J7060; Q9967

== ENCOUNTER → 2023-06-12 | Outpatient (CLI) | payer OTHER ==
[~2023-06-12] MED LIST changes: +AMIO200T13 PO; +APIX5TAB PO; +DIGO125T11 PO; +FURO1TAB33 PO; +LISI2.5T47 PO; +METO-159 PO; +POTA8TAB38 PO
[2023-06-12 08:34] LABS: Basophils # (auto) 0 10 ^3/uL (0-0.2); Basophils % (auto) 0.9 % (0.0-2.0); Eosinophils # (auto) 0.1 10 ^3/uL (0-0.8); Eosinophils % (auto) 2.6 % (0.0-7.0); Hematocrit 39.9 % (36.0-46.0); Lymphocytes # (auto) 1.1 10 ^3/uL (0.4-5.4); Lymphocytes % (auto) 19.1 % (10.0-50.0); Mean Corpuscular Hemoglobin 29.4 pg (28.0-32.0); Mean Corpuscular Hgb Conc. 32.5 g/dL (32.0-36.0); Mean Corpuscular Volume 90.4 fL (80.0-100.0); Monocytes # (auto) 0.5 10 ^3/uL (0-1.3); Monocytes % (auto) 9.1 % (0.0-12.0); Neutrophils # (auto) 3.8 10 ^3/uL (1.6-8.6); Neutrophils % (auto) 68.3 % (37.0-80.0); Red Blood Cells 4.41 10^6/uL (4.0-5.20); Red Cell Distribution Width 16.2 % (11.8-14.3); White Blood Cell 5.5 10^3/uL (4.4-10.8)
[2023-06-12 09:13] LABS: Albumin 4.1 g/dL (3.2-4.8); Alkaline Phosphatase 53 U/L (46-116); Anion Gap 4 (5-15); Aspartate Aminotransferase 18 U/L (13-40); BUN/Creatinine Ratio 21.6 (10.0-20.0); Bilirubin, Direct 0.4 mg/dL (<0.3); Blood Urea Nitrogen 16 mg/dL (9-23); Calcium 9.2 mg/dL (8.5-10.1); Carbon Dioxide 32 mmol/L (20-30); Chloride 103 mmol/L (98-107); Cholesterol 159 mg/dL (< 200); Glucose 97 mg/dL (74-106); HDL Cholesterol 60 mg/dL (40-59); LDL Cholesterol 82 mg/dL (< 100); Potassium 4.4 mmol/L (3.5-5.1); Sodium 139 mmol/L (136-145); Triglycerides 82 mg/dL (< 150)
[2023-06-12 09:14] LABS: Total Protein 6.3 g/dL (5.7-8.2)
[2023-06-12 09:15] LABS: Alanine Aminotransferase 9 U/L (7-40)
== END | disposition home or self-care (01) ==
LOC: LAB 08:21
PROVIDERS: ATTEND Student in an Organized Health Care Education/Training Program
DX: I11.0 Hypertensive heart disease with heart failure (principal); I50.42 Chronic combined systolic (congestive) and diastolic (congestive) heart failure; R00.2 Palpitations
CPT/HCPCS: 36415; 80053; 80061; 80076; 82947; 83880; 85025

== ENCOUNTER 2023-09-26 17:35 | Emergency (ER) | payer OTHER ==
[~2023-09-26] VITALS: Ht 162.6 cm; Wt 61.3 kg
[2023-09-26 18:12] LABS: Basophils # (auto) 0 10 ^3/uL (0-0.2); Basophils % (auto) 0.6 % (0.0-2.0); Eosinophils # (auto) 0 10 ^3/uL (0-0.8); Eosinophils % (auto) 0.3 % (0.0-7.0); Hematocrit 37.6 % (36.0-46.0); Hemoglobin 12.3 g/dL (12.2-16.2); Lymphocytes # (auto) 0.9 10 ^3/uL (0.4-5.4); Lymphocytes % (auto) 12.9 % (10.0-50.0); Mean Corpuscular Hemoglobin 29.7 pg (28.0-32.0); Mean Corpuscular Hgb Conc. 32.7 g/dL (32.0-36.0); Mean Corpuscular Volume 90.9 fL (80.0-100.0); Monocytes # (auto) 0.6 10 ^3/uL (0-1.3); Monocytes % (auto) 8.5 % (0.0-12.0); Neutrophils # (auto) 5.5 10 ^3/uL (1.6-8.6); Neutrophils % (auto) 77.7 % (37.0-80.0); Nucleated Red Blood Cells % 0.1 %; Red Blood Cells 4.14 10^6/uL (4.0-5.20); Red Cell Distribution Width 15.6 % (11.8-14.3); White Blood Cell 7.1 10^3/uL (4.4-10.8)
[2023-09-26 18:26] LABS: INR 1.15 (0.9-1.15); Partial Thromboplastin Time 27.3 SEC (24.5-34.5)
[2023-09-26 18:30] LABS: Alanine Aminotransferase 23 U/L (7-40); Alkaline Phosphatase 54 U/L (46-116); Anion Gap 8 (5-15); Aspartate Aminotransferase 31 U/L (13-40); BUN/Creatinine Ratio 26.3 (10.0-20.0); Bilirubin, Total 0.7 mg/dL (0.2-1.0); Blood Urea Nitrogen 21 mg/dL (9-23); Calcium 8.5 mg/dL (8.7-10.4); Carbon Dioxide 29 mmol/L (20-30); Chloride 101 mmol/L (98-107); Glucose 111 mg/dL (74-106); Magnesium 2.1 mg/dL (1.6-2.6); Potassium 3.7 mmol/L (3.5-5.1); Sodium 138 mmol/L (136-145); Total Protein 5.9 g/dL (5.7-8.2)
[2023-09-26 19:30] VITALS: BP 173/59; PULSE 47; RESP 20; TEMP 97.9; O2SAT 95
[2023-09-26 20:00] VITALS: PULSE 49
[2023-09-26] MEDS: cloNIDine HCL 0.1 MG TAB PO ONE (20:11)
[2023-09-26] MEDS: LIDOCAINE 2% TOPICAL JELLY 5 ML URJT TOP ONE (20:19)
[2023-09-26] MEDS: LIDOCAINE 2%HCL (LOCAL ANESTH.) INJ 10ml MDV ONE (20:26)
[2023-09-26] MEDS: LIDOCAINE 2% JELLY 11ml (GLYDO) UR ONE (20:27)
[2023-09-26] MEDS ORDERED: NAP500T PO (20:36)
[2023-09-26] MEDS: traMADol HCL 50 MG TAB PO ONE (20:39)
== END 2023-09-26 21:48 | disposition home or self-care (01) ==
LOC: EDBD 17:35 → ER 17:35
DX: S01.01XA Laceration without foreign body of scalp, initial encounter (principal); M25.531 Pain in right wrist; M25.532 Pain in left wrist; I10 Essential (primary) hypertension; I48.91 Unspecified atrial fibrillation; R51.9 Headache, unspecified; Z79.899 Other long term (current) drug therapy; W22.8XXA Striking against or struck by other objects, initial encounter; Y93.89 Activity, other specified; Y92.89 Other specified places as the place of occurrence of the external cause; Y99.8 Other external cause status
CPT/HCPCS: 12001; 36415; 70450; 72125; 73030; 73080; 73090; 80053; 83735; 83880; 84484; 85025; 85610; 85730; 93005; J2001

== ENCOUNTER → 2024-01-01 | Outpatient (CLI) | payer OTHER ==
[~2024-01-01] MED LIST changes: +NAP500T PO
[2024-01-01 08:37] LABS: Alanine Aminotransferase 35 U/L (7-40); Alkaline Phosphatase 59 U/L (46-116); Anion Gap 4 (5-15); Aspartate Aminotransferase 49 U/L (13-40); Blood Urea Nitrogen 13 mg/dL (9-23); Calcium 8.9 mg/dL (8.5-10.1); Carbon Dioxide 31 mmol/L (20-30); Chloride 103 mmol/L (98-107); Glucose 94 mg/dL (74-106); Potassium 3.9 mmol/L (3.5-5.1); Sodium 138 mmol/L (136-145)
[2024-01-01 08:39] LABS: Bilirubin, Total 0.8 mg/dL (0.2-1.0); Total Protein 6.1 g/dL (5.7-8.2)
== END | disposition home or self-care (01) ==
LOC: LAB 07:18
PROVIDERS: ATTEND Student in an Organized Health Care Education/Training Program
DX: R60.0 Localized edema (principal)
CPT/HCPCS: 36415; 80053